=== PATIENT | male | born 1965 | race Caucasian/White ===

== ENCOUNTER 2017-01-26 14:41 | Emergency (ER) | payer OTHER ==
[2017-01-26] MEDS ORDERED: Lidocaine 1% 20 ML MDV INJECT ONE (14:56)
--- NOTE | 2017-01-26 15:59 | EDM.PDOC ---
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 - Related Data Allergies Allergy/AdvReac Type Severity Reaction Status Date / Time cat dander Allergy Difficulty Verified 01/26/17 14:49 Breathing latex Allergy Anaphylactic Verified 01/26/17 14:49 Shock mold Allergy Difficulty Verified 01/26/17 14:49 Breathing DUST Allergy Difficulty Uncoded 01/26/17 14:49 Breathing MILDEW Allergy Difficulty Uncoded 01/26/17 14:49 Breathing Home Meds: Ambulatory Orders Medication Instructions Recorded Confirmed Cetirizine [ZyrTEC] 10 mg PO DAILY 04/20/15 01/26/17 Citalopram Hydrobromide [Celexa] 60 mg PO DAILY 04/20/15 01/26/17 Mirtazapine [Remeron] 45 mg PO BEDTIME 04/20/15 01/26/17 Omeprazole [Prilosec] 20 mg PO DAILY 04/20/15 01/26/17 Simvastatin [Zocor] 10 mg PO DAILY 04/20/15 01/26/17 Cephalexin 500 mg PO BID #6 tablet 01/26/17 Gabapentin [Neurontin] 200 mg PO BID 01/26/17 01/26/17 Past Medical History Cardiovascular History: Reports: High cholesterol, Hypertension Respiratory History: Reports: Other (see below) Other Respiratory History: HAYFEVER Other Gastrointestinal History: INGUINAL HERNIA Musculoskeletal History: Reports: Other (see below) Other Musculoskeletal History: RIGHT SHOULDER DISLOCATION Psychiatric History: Reports: Anxiety, Depression - Past Surgical History HEENT Surgical History: Reports: Other (see below) Other HEENT Surgeries/Procedures: LASIX EYE SURGERY Social & Family History - Tobacco Use Smoking Status *Q: Current Every Day Smoker Years of Tobacco use: 35 Packs/Tins Daily: 1 - Caffeine Use Caffeine Use: Reports: Energy drinks, Soda - Alcohol Use Days Per Week of Alcohol Use: 0 Number of Drinks Per Day: 0 (rare) Total Drinks Per Week: 0 - Recreational Drug Use Recreational Drug Use: No Drug Use in Last 12 Months: No - Living Situation & Occupation Living situation: Reports: single 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[employer]) ED ROS GENERAL - Review of Systems Review Of Systems: See Below Constitutional: Reports: no symptoms HEENT: Reports: No symptoms Respiratory: Reports: No Symptoms Cardiovascular: Reports: No symptoms Endocrine: Reports: no symptoms GI/Abdominal: Reports: No symptoms : Reports: no symptoms Musculoskeletal: Reports: no symptoms Skin: Reports: wound Neurological: Reports: No Symptoms Psychiatric: Reports: No symptoms Hematologic/Lymphatic: Reports: no symptoms Immunologic: Reports: no symptoms ED EXAM, SKIN/RASH Exam: See Below Exam Limited By: No limitations General Appearance: alert, WD/WN, no apparent distress Respiratory/Chest: no respiratory distress Cardiovascular: regular rate, rhythm Skin: Other (L thumb with curvilinear flap of 2.5 cm on medial aspect of proximal phalange, not over joint lines, FROM IP and MCP joints, LT intact, just into fat layer, no exposed muscle, no debris, 1% lido with #31 needle used for local, cleaned x 10 with gauze and NS, 3-0 Prolene x 6 used for closure, good apposition margins, tolerated well) Course - Vital Signs Last Recorded V/S: Last Vital Signs Temp 36.7 C 01/26/17 15:00 Pulse 103 H 01/26/17 15:00 Resp 20 01/26/17 15:00 BP 155/100 H 01/26/17 15:00 Pulse Ox 99 01/26/17 15:00 - Orders/Labs/Meds Meds: Medications Discontinued Medications Generic Name Dose Route Start Last Admin Trade Name Hansq PRN Reason Stop Dose Admin Lidocaine HCl 10 ml 01/26/17 14:56 Xylocaine 1% INJECT 01/26/17 14:57 ONETIME ONE Departure - Departure Time of Disposition: 15:56 Disposition: Home, Self-Care 01 Condition: good Clinical Impression: Laceration of thumb, left Prescriptions: Cephalexin 500 mg PO BID #6 tablet Instructions: Laceration Care, Adult, [id number] Forms: ED Department Discharge, Return to Work/School Form Additional Instructions: Keep laceration clean and dry and covered with a dressing when working. May leave open to air when home. For infection, take cephalexin 500 mg 1 tab 2 times a day for 3 days. See a physician the same day for any increase in redness, swelling, pain, warmth , fever or drainage. Avoid direct pressure or friction. May work. See your physician in 8 days to remove sutures. [facility]. If it has been more than 5 years, get a tetanus vaccine tomorrow. Call your Physician or Return to Emergency Department if: * Your condition worsens in any way. * You develop fever greater than 100.4. * You have vomiting that does not stop with medications. * You have pain that is not controlled with medications.
[2017-01-26 16:16] VITALS: BP 145/89
== END 2017-01-26 16:05 | disposition home or self-care (01) ==
LOC: FB.ED 14:41
DX: S61.012A Laceration without foreign body of left thumb without damage to nail, initial encounter (principal); I10 Essential (primary) hypertension; E78.00 Pure hypercholesterolemia, unspecified; F41.9 Anxiety disorder, unspecified; F32.9 Major depressive disorder, single episode, unspecified; F17.210 Nicotine dependence, cigarettes, uncomplicated; Z91.040 Latex allergy status; Z91.09 Other allergy status, other than to drugs and biological substances; Z79.899 Other long term (current) drug therapy; Z98.890 Other specified postprocedural states; W26.9XXA Contact with unspecified sharp object(s), initial encounter
CPT/HCPCS: 12001; 99283; A4217; 12002